=== PATIENT | female | born 1995 | race Caucasian/White ===

== ENCOUNTER 2019-09-26 23:17 | Emergency (ER) | payer MEDICAID ==
[2019-09-27] MEDS ORDERED: HYDROcodone/Acetaminophen 5/325 mg Tablet ONE (00:41)
[2019-09-27] MEDS ORDERED: HYDROcodone/Acetaminophen 10/325 mg Tablet ONE (00:44)
--- NOTE | 2019-09-27 09:08 | RAD ---
RIGHT HAND 3 VIEWS: HISTORY: Trauma to hand. FINDINGS: There is an obliquely oriented fracture of the distal 5th metacarpal shaft which is slightly volarly oriented. IMPRESSION: Boxer's-type fracture of the 5th metacarpal. POS: [facility]
== END 2019-09-27 01:40 | disposition home or self-care (01) ==
LOC: ERS 23:17
DX: S62.304A Unspecified fracture of fourth metacarpal bone, right hand, initial encounter for closed fracture (principal); F41.9 Anxiety disorder, unspecified; W22.09XA Striking against other stationary object, initial encounter
CPT/HCPCS: 26600